=== PATIENT | female | born 2000 | race Caucasian/White ===

== ENCOUNTER 2024-12-28 08:41 | Emergency (ER) | payer OTHER, SELFPAY ==
--- OUTSIDE RECORDS SUMMARY | 2011-04-29 20:00 | XMS_ITS | Continuity of Care Document ---
Demographics Address Unknown Address [birth year][address][birth year] [place] [address] Home Phone Preferred Language en Marital Status Unknown Mandaeism Affiliation Unknown Race Unknown Ethnic Group Unknown Author Organization [facility] Address [address] [place] [address] Phone Care Team Providers Care Managed Care Coordinator Name Role Phone Nima Aparicio Unavailable Unavailable Procedures Procedure Date OFFICE/OUTPATIENT VISIT, EST TDAP VACCINE >7 IM CHICKEN POX VACCINE, SC OFFICE/OUTPATIENT VISIT, EST Advance Directives Directive Yes / No Effective Date File Name Resuscitation Not Answered N/A N/A Life Support Not Answered N/A N/A Intubation Not Answered N/A N/A Antibiotics Not Answered N/A N/A IV Fluid Support Not Answered N/A N/A Tube Feed Not Answered N/A N/A Other Directive N/A N/A WARNING:The information contained in this section is historical and is provided for information only and does not constitute a legal document or any assurance that the information is still accurate. Please verify the information with the julio of the legal document before using it for clinical purposes. Encounters Encounter Description Practice Location Reason(s) For Visit Diagnoses Date Provider Providers Copied on Encounter OFFICE/OUTPAT IENT VISIT, EST [facility], [address] [place], [place], [id number], [place] tel:[phone] [facility] Need for prophylactic vaccination and inoculation against varicellaNeed for prophylactic vaccination with combined diphtheria-teta nus-pertussis (DTP) (DTaP) vaccine Evelia Herring. [address] [place], [place], [id number], [place]. tel:[phone] Family History Family Member Type Diagnosis Age At Onset No Information Immunizations Vaccine Date Status Comments Tdap administered Source: New Imm unization Record Varicella administered Source: New Imm unization Record Payers Payer name Insurance type Covered republican ID Authoriza tion(s) No Information Social History Type Description Quantity Date Captured Comments Alcohol Use Details Unknown Caffeine Use Details Unknown Tobacco Use Status No Information Smoking Status No Information Sex Female Chief Complaint And Reason For Visit No Information Reason For Referral Reason For Referral No Information History Of Present Illness Encounter Date Complaint History Of Prese nt Illness No Information Functional Status Date Functional Assessmen t No Information Instructions Date Instruction Additional Infor mation No Information Assessments Type Assessment Date No Information Patient Care Teams Name Effective Dates (start - stop) Status Members No Information
[2024-12-28 08:46] VITALS: BP 125/63; PULSE 84; TEMP 37.3; O2SAT 98; BMI 23.3
--- OUTSIDE RECORDS SUMMARY | 2024-12-28 08:48 | XMS_ITS | Continuity of Care Document ---
Author Name [facility] Organization [facility] Care Team Providers Care Shear Setter Name Role Phone [facility] Unavailable Unavailable Medications Combined list of outpatient medications from Department of Defense and Veterans Affairs facilities.Medications provided include 1) outpatient medications from the last 15 months, and 2) patient-reported medications. Medication Details Route Status Patient Instructions Prescription Expires Prescription Number Last Dispense Date Ordering Provider Order Date Order Qty Source CRYSELLE (NORGESTREL -ETHINYL ESTRADIOL), 0.3-0.03MG, TABLET, ORAL, DE LE[place]N, 28 ea. BLIST PACK Active [id number] 2023 84 Pharmac y Data Transac tion Service Facilit y CRYSELLE (NORGESTREL -ETHINYL ESTRADIOL), 0.3-0.03MG, TABLET, ORAL, DE LEÓN, 28 ea. BLIST PACK Cancele d [id number] : 2023 0 Pharmac y Data Transac tion Service Facilit y CRYSELLE (NORGESTREL -ETHINYL ESTRADIOL), 0.3-0.03MG, TABLET, ORAL, DE LEÓN, 28 ea. BLIST PACK Active [id number] 2023 28 Pharmac y Data Transac tion Service Facilit y Immunizations Combined list of available immunizations from the Department of Defense and Veterans Affairs facilities. Immunization Series Date Given Administered By Site Reaction Lot Number CVX Code Drug Ship'S Pilot Status Comments Source Influenza, inj, MDCK, quadrivalent- pf 2022 171 Seqirus complet ed Influenza , inj, MDCK, quadrival ent-pf 07/10/23 Given Ambulat ory Pharmac y typhoid Vi capsular polysaccharid e vac 2022 [id number] sanofi pasteur complet ed typhoid Vi capsular polysacch aride vac 03/28/23 Given Ambulat ory Pharmac y anthrax vaccine 2022 [id number] Emergent Biosolutions complet ed anthrax vaccine 03/28/23 Given Ambulat ory Pharmac y influenza, injectable, quadrivalent- pf 2021 [id number] 150 sanofi pasteur complet ed influenza , injectabl e, quadrival ent-pf 06/21/22 Given Ambulat ory Pharmac y HepB, Adult 2021 [id number] GlaxoSmithKli ne complet ed HepB, Adult 10/27/21 Given Ambulat ory Pharmac y COVID Vaccine Pfizer 2021 [id number] PFIZER complet ed COVID Vaccine Pfizer 08/30/21 Given Ambulat ory Pharmac y influenza, injectable, quadrivalent- pf 2021 [id number] 150 Seqirus complet ed influenza , injectabl e, quadrival ent-pf 08/05/21 Given Ambulat ory Pharmac y COVID Vaccine Pfizer 2021 [id number] PFIZER complet ed COVID Vaccine Pfizer 08/05/21 Given Ambulat ory Pharmac y hepatitis A adult vaccine 2020 [id number] 52 GlaxoSmithKli ne complet ed hepatitis A adult vaccine 09/22/20 Given Ambulat ory Pharmac y influenza, injectable, quadrivalent- pf 2020 150 complet ed influenza , injectabl e, quadrival ent-pf 08/10/20 Given Ambulat ory Pharmac y influenza, injectable, quadrivalent, preservative free 2020 MEENA IRAHETA () Not Given influenza , injectabl e, quadrival ent, preservat lucretia free [facility] influenza, injectable, quadrivalent- pf 2018 [id number] 150 Seqirus complet ed influenza , injectabl e, quadrival ent-pf 07/09/19 Given Ambulat ory Pharmac y measles/mumps /rubella virus vaccine 2018 [id number] Merck & Company Inc complet ed measles/m umps/rube lla virus vaccine 09/21/18 Given Ambulat ory Pharmac y hepatitis B pediatric/ado lescent 2018 [id number] GlaxoSmithKli ne complet ed hepatitis B pediatric /adolesce nt 09/21/18 Given Ambulat ory Pharmac y meningococcal A,C,Y,W-135 (MCV4P) 2017 [id number] 114 sanofi pasteur complet ed meningoco ccal A,C,Y,W-1 35 (MCV4P) 06/25/18 Given Ambulat ory Pharmac y hepatitis B pediatric/ado lescent 2017 [id number] 08 GlaxoSmithKli ne complet ed hepatitis B pediatric /adolesce nt 06/25/18 Given Ambulat ory Pharmac y influenza, injectable, quadrivalent 2017 [id number] 158 Seqirus complet ed influenza , injectabl e, quadrival ent 06/25/18 Given Ambulat ory Pharmac y adenovirus vaccine, live 2017 [id number] 143 Teva Pharmaceutica ls complet ed adenoviru s vaccine, live 06/25/18 Given Ambulat ory Pharmac y tetanus, diphtheria, acellular pertu is 2017 [id number] GlaxoSmithKli ne complet ed tetanus, diphtheri a, acellular pertussis 06/25/18 Given Ambulat ory Pharmac y poliovirus vaccine, inactivated 2017 [id number] sanofi pasteur complet ed polioviru s vaccine, inactivat ed 06/25/18 Given Ambulat ory Pharmac y measles/mumps /rubella virus vaccine 2017 [id number] Merck & Company Inc complet ed measles/m umps/rube lla virus vaccine 06/25/18 Given Ambulat ory Pharmac y measles, mumps and rubella virus vaccine 1 2017 [id number] Merck (MSD) complet ed measles, mumps and rubella virus vaccine DoD hepatitis B vaccine, pediatric or pediatric/ado lescent dosage 1 2017 [id number] 08 [employer] (SKB) complet ed hepatitis B vaccine, pediatric or pediatric /adolesce nt dosage DoD poliovirus vaccine, inactivated 1 2017 [id number] 10 Sanofi Pasteur (PMC) complet ed polioviru s vaccine, inactivat ed DoD varicella virus vaccine 1 2017 UNK 21 Unknown (UNK) Not Given varicella virus vaccine DoD hepatitis A vaccine, adult dosage 1 2017 UNK 52 Unknown (UNK) Not Given hepatitis A vaccine, adult dosage DoD meningococcal polysaccharid e (groups A, C, Y and W-135) diphtheria toxoid conjugate vaccine (MCV4P) 1 2017 [id number] 114 Sanofi Pasteur (PMC) complet ed meningoco ccal polysacch aride (groups A, C, Y and W-135) diphtheri a toxoid conjugate vaccine (MCV4P) DoD tetanus toxoid, reduced diphtheria toxoid, and acellular pertu is vaccine, adsorbed 1 2017 [id number] 115 SmithKline (SKB) complet ed tetanus toxoid, reduced diphtheri a toxoid, and acellular pertussis vaccine, adsorbed DoD Adenovirus, type 4 and type 7, live, oral 1 2017 [id number] 143 Independa (BRR) complet ed Adenoviru s, type 4 and type 7, live, oral [facility] influenza, injectable, quadrivalent, contains preservative 1 2017 [id number] 158 Seqirus (SEQ) complet ed influenza , injectabl e, quadrival ent, contains preservat lucretia DoD Encounters Combined list of: 1) Encounters from Department of Veterans Affairs facilities going backup to the last 18 months, not all VA inpatient encounters are included; 2) Encounters from the Department of Defense facilities going backup to 280 months. Location Location Details Encounter Type Encounter Number Reason For Visit Attending Provider ADM Date DC Date Status Disposition Source [place] OUTPATIENT [id number] Notes Entered by: CHRISTOPHER GODFREY 23 Jun 2018 0640 ------- ------- ------- ------- -- [id number] DAY 1 600 JOAQUIN FLORES 06/23 Released w/o Limitations [place] [id number] Notes Entered by: TANNER LEWIS 23 Jun 2018 0645 ------- ------- ------- ------- -- Optomet ry CAIO Aviles 06/23 Released w/o Limitations [place] OUTPATIENT [id number] Notes Entered by: AIDEN PALOMINO 25 Jun 2018 0456 ------- ------- ------- ------- -- [id number] DAY 3 600 LYNETTE JEFF 06/25 Released w/o Limitations [place] OUTPATIENT [id number] IMTIAZ BROWN 06/25 Released w/o Limitations [place] OUTPATIENT [id number] Notes Entered by: AIDEN PALOMINO 21 Sep 2018 0410 ------- ------- ------- ------- -- B CO 1-58 PED B/MMR JD LI 09/21 Released w/o Limitations [place] Procedures Combined list of: 1) Procedures from Department of Veterans Affairs facilities going back up to thelast 18 months, not all VA non-surgical procedures are included; 2) All procedures from the Department of Defense facilities. Procedure Procedure Type Code Date Perfomer Comments Sourc e No data available for this section Ambulato ry Pharmacy MEASLES, MUMPS AND RUBELLA VIRUS VACCINE (MMR), LIVE, FOR SUBCUTANEOUS USE 09/21/19 [facility] AUDIOMETRIC TESTING OF GROUPS 06/25/20 DoD INFLUENZA VIRUS VACCINE, QUADRIVALENT (IIV4), SPLIT VIRUS, 0.5 ML DOSAGE, FOR INTRAMUSCULAR USE 06/25/20 [facility] SCREENING TEST OF VISUAL ACUITY, QUANTITATIVE, BILATERAL 06/23/20 [facility] COLLECTION OF VENOUS BLOOD BY VENIPUNCTURE 06/23/20 18 DoD Vaccines Viral Measles, Mumps and Rubella, Live Vaccines Viral Measles, Mumps and Rubella, Live 97075 09/21/19 JD LI DoD Immunization Administration Each Additional Vaccine Immunization Administration Each Additional Vaccine 54470 09/21/19 JD LI DoD Immunization Administration One Vaccine Immunization Administration One Vaccine 31295 09/21/19 19 JEN, JD Matt [facility] Hep B Vaccine (Active); Adolescent (2 Dose Schedule) Hep B Vaccine (Active); Adolescent (2 Dose Schedule) 02641 09/21/19 19 JENJD GASTON [facility] Audiometry Group Testing Audiometry Group Testing 69072 06/29/20 18 IMTIAZ BROWN [facility] Vaccines Adenovirus Type 7 Live, For Oral Use Vaccines Adenovirus Type 7 Live, For Oral Use 08040 06/25/20 18 [facility] Vaccines Adenovirus Type 4 Live, For Oral Use Vaccines Adenovirus Type 4 Live, For Oral Use 32751 06/25/20 18 [facility] Vaccines Viral Polio, Inactivated (Salk) Vaccines Viral Polio, Inactivated (Salk) 49668 06/25/20 18 [facility] Vaccines Viral Measles, Mumps and Rubella, Live Vaccines Viral Measles, Mumps and Rubella, Live 42224 06/25/20 18 [facility] Tdap Vaccine Tdap Vaccine 22897 06/25/20 18 [facility] Hep B Vaccine (Active); Adolescent (2 Dose Schedule) Hep B Vaccine (Active); Adolescent (2 Dose Schedule) 71155 06/25/20 18 [facility] Immunization Administration One Vaccine Immunization Administration One Vaccine 95704 06/25/20 18 [facility] Immunization Administration Each Additional Vaccine Immunization Administration Each Additional Vaccine 01831 06/25/20 18 [facility] Meningococcal Polysacch Diphtheria Toxoid Conjugate Vaccine 06/25/20 18 [facility] Screening Test Of Visual Acuity, Quantitative, Bilateral Screening Test Of Visual Acuity, Quantitative, Bilateral 20825 06/23/[address] [facility] Venipuncture Venipuncture 44117 06/23/20 18 JOAQUIN FLORES [facility] Social History Combined list of available smoking, tobacco, and other social history from Department of Defense and Veterans Affairs facilities. Social History Type Response Date Comment [facility] e This section is an empty social history section. [facility] Assessment and Plan Combined list of future care activities from Department of Defense and Veterans Affairs facilities (e.g., assessment and plan notes, appointments, orders, and referrals). Additional future care activities may be listed in the Plan of Care section. Result Assessment and Plan Date Source Assessment and Plan No data available for this section 12/28/2024 Ambulatory Pharmacy Functional Status Combined list of recent functional and cognitive assessments recorded at Department of Defense and Veterans Affairs (VA).VA Functional Vinton Measurement (FIM) Scale: 1 = Total Assistance (Subject = 0% +), 2 = Maximal Assistance (Subject = 25% +), 3 = Moderate Assistance (Subject = 50% +), 4 = Minimal Assistance (Subject = 75% +), 5 = Supervision, 6 = Modified Vinton (Device), 7 = Complete Vinton (Timely, Safely). Assessment Date/Time Source Assessment Type Assessment Skill Assessment Score Assessment Details No data available for this section
--- NOTE | 2024-12-28 09:05 | ED.GENADUL1 ---
HPI HPI - General Adult General Chief complaint: Urogenital-Female Stated complaint: CHILLS FEVER VOMITING L FLANK PAIN Time Seen by Provider: 12/28/24 08:57 Source: patient Mode of arrival: walk-in Limitations: no limitations History of Present Illness HPI narrative: 24-year-old female presents for chills and left flank pain. She has had some urinary frequency and her symptoms began yesterday. She states she had a temperature of 102 degrees last night. She has had a kidney infection in the past. Related Data Home Medications ?Medication ?Instructions ?Recorded ?Confirmed norgestrel 0.3 mg-ethinyl 1 tab PO DAILY 12/28/24 12/28/24 estradiol 30 mcg tablet (Fidel (28)) Previous Rx's ?Medication ?Instructions ?Recorded cephalexin 500 mg capsule 500 mg PO TID 10 days #30 caps 12/28/24 Allergies Allergy/AdvReac Type Severity Reaction Status Date / Time No Known Drug Allergies Allergy Verified 12/28/24 08:45 Review of Systems ROS Narrative A ten point review of systems is negative except as noted above. PFSH PFSH Social History Little interest or pleasure in doing things: not at all Feeling down, depressed, or hopeless: not at all Exam Narrative Exam Narrative: Nurses note and vital signs reviewed and patient is not hypoxic. General: The patient appears well and in no apparent distress. Patient is resting comfortably on cart. Skin: Warm, dry, no pallor noted. There is no rash noted. Head: Normocephalic, atraumatic Eye: Normal conjunctiva, no drainage Ears, Nose, Mouth, and Throat: oral mucosa is moist. Nares patent. Cardiovascular: Regular Rate and Rhythm Respiratory: Patient is in no distress, no accessory muscle use, lungs are clear to auscultation, no wheezing, rales or rhonchi Back: non-tender, no CVA tenderness bilaterally to percussion. GI: Soft and nontender Musculoskeletal: The patient has no evidence of calf tenderness, no pitting edema, symmetrical pulses noted bilaterally Neurological: A&O, normal speech Psychiatric: Cooperative Constitutional Vital Signs, click to edit/add: Last Vital Signs Temp 99.1 F 12/28/24 08:46 Pulse 84 12/28/24 08:46 Resp 20 12/28/24 08:46 BP 125/63 12/28/24 08:46 Pulse Ox 98 12/28/24 08:46 O2 Del Method Room Air 12/28/24 08:46 Course Vital Signs Vital signs: Vital Signs Temperature 99.1 F 12/28/24 08:46 Pulse Rate 84 12/28/24 08:46 Respiratory Rate 20 12/28/24 08:46 Blood Pressure 125/63 12/28/24 08:46 Pulse Oximetry 98 12/28/24 08:46 Oxygen Delivery Method Room Air 12/28/24 08:46 Temperature 99.1 F 12/28/24 08:46 Pulse Rate 84 12/28/24 08:46 Respiratory Rate 20 12/28/24 08:46 Blood Pressure 125/63 12/28/24 08:46 Pulse Oximetry 98 12/28/24 08:46 Oxygen Delivery Method Room Air 12/28/24 08:46 Medical Decision Making MDM Narrative Medical decision making narrative: UTI is identified. She was given IV Rocephin and is able to be discharged home on Keflex. Treatment diagnosis and follow-up were discussed with the patient. At this point I do not suspect pyelonephritis. Differential Diagnosis Differential Diagnosis: UTI, pyelonephritis Lab Data Lab results reviewed: Yes I reviewed the patient's lab results Labs: Lab Results 12/28/24 12/28/24 Range/Units 08:50 09:15 WBC 12.1 H (4.0-11.0) 10^3/uL RBC 4.35 (4.20-5.40) 10^6/uL Hgb 12.6 (12.0-16.0) g/dL Hct 37.4 (36.0-48.0) % MCV 86.0 (81.0-99.0) fL MCH 29.0 (26.7-34.0) pg MCHC 33.7 (29.9-35.2) g/dL RDW 13.3 (11.0-15.0) % Plt Count 182 (150-450) 10^3/uL MPV 10.7 (9.5-13.5) fL Seg Neuts % (Manual) 86.0 H (43.0-75.0) Lymphocytes % (Manual) 9.0 L (20.5-60.0) % Monocytes % (Manual) 5.0 (1.7-12.0) % Eosinophils % (Manual) 0.0 L (0.9-7.0) % Basophils % (Manual) 0.0 L (0.2-2.0) % Neutrophils # (Manual) 10.40 H (1.4-6.5) 10^3/uL Lymphocytes # (Manual) 1.08 L (1.20-3.80) 10^3/uL Monocytes # (Manual) 0.60 (0.30-0.80) 10^3/uL Eosinophils # (Manual) 0.00 (0.00-0.70) 10^3/uL Basophils # (Manual) 0.00 (0.00-0.10) 10^3/uL Anisocytosis 1+ Sodium 137 (136-145) mmol/L Potassium 3.6 (3.5-5.1) mmol/L Chloride 101 (98-107) mmol/L Carbon Dioxide 25.4 (21.0-32.0) mmol/L Anion Gap 14.2 BUN 7.0 (7.0-18.0) mg/dL Creatinine 0.81 (0.55-1.02) mg/dL Est GFR ( Amer) >60 (>=60 mL/min/1.73m^2) Est GFR (Non-Af Amer) >60 (>=60 mL/min/1.73m^2) BUN/Creatinine Ratio 8.6 Glucose 134 H (74-106) mg/dL Calcium 9.4 (8.5-10.1) mg/dL Serum HCG, Qual Negative (NEGATIVE) Urine Color Lt. yellow (YELLOW) Urine Clarity Sl cloudy (CLEAR) Urine pH 8.0 (5.0-9.0) Ur Specific Shepherd 1.015 (1.005-1.025) Urine Protein 30 A (NEG/TRACE) mg/dL Urine Glucose (UA) Negative (NEGATIVE) mg/dL Urine Ketones >=80 A (NEGATIVE) mg/dL Urine Occult Blood Moderate A (NEGATIVE) Urine Nitrite Positive A (NEGATIVE) Urine Bilirubin Negative (NEGATIVE) Urine Urobilinogen 2.0 A (0.2-1.0) EU/dL Ur Leukocyte Esterase Small A (NEGATIVE) Urine RBC 10-20 A (0-2) #/HPF Urine WBC 20-50 A (NONE SEEN) #/HPF Ur Squamous Epith Cells Few A (NONE/RARE) #/LPF Urine Crystals None seen (None Seen) #/HPF Urine Bacteria Large A (NONE SEEN) #/HPF Urine Casts None seen (NONE SEEN) #/LPF Urine Mucus Moderate A (NONE SEEN) Ur Culture Indicated? Yes-[facility] [place] Discharge Plan Discharge Chief Complaint: Urogenital-Female Clinical Impression: Urinary tract infection Patient Disposition: Home, Self-Care Time of Disposition Decision: 09:51 Condition: Good Mode of Transportation: Private Vehicle Prescriptions / Home Meds: New cephalexin 500 mg capsule 500 mg PO TID 10 Days Qty: 30 0RF No Action Cryseradhae (28) 0.3-30 mg-mcg tablet 1 tab PO DAILY Print Language: Trinidadian Instructions: Urinary Tract Infection in Women (ED) Referrals: Paresh Torres DO [Primary Care Provider] - 1 week
[2024-12-28 09:13] LABS: Bilirubin Urine NEGATIVE (NEGATIVE); Blood Urine MODERATE (NEGATIVE); Clarity Urine SL CLOUDY (CLEAR); Color Urine LT. YELLOW (YELLOW); Glucose Urine UA NEGATIVE (NEGATIVE); Ketones Urine >=80 mg/dL (NEGATIVE); Leukocyte Esterase Urine SMALL (NEGATIVE); Nitrite Urine POSITIVE (NEGATIVE); Protein Urine 30 mg/dL (NEG/TRACE); Specific Gravity Urine 1.015 (1.005-1.025)
[2024-12-28 09:20] LABS: Bacteria Urine LARGE #/HPF (NONE SEEN); Crystals Seen? None Seen #/HPF (None Seen); Mucus Urine MODERATE (NONE SEEN); Squamous Epithelial Cell Urine FEW #/LPF (NONE/RARE); WBC Urine 20-50 #/HPF (NONE SEEN)
[2024-12-28 09:21] LABS: Cast Seen? NONE SEEN #/LPF (NONE SEEN); Urine Culture Indicated YES-FRMC
[2024-12-28 09:23] LABS: Hematocrit 37.4 % (36.0-48.0); Hemoglobin 12.6 g/dL (12.0-16.0); Mean Corpuscular HGB Conc 33.7 g/dL (29.9-35.2); Mean Platelet Volume 10.7 fL (9.5-13.5); Platelet Count 182 10^3/uL (150-450); Red Blood Count 4.35 10^6/uL (4.20-5.40); Red Cell Distribution Width 13.3 % (11.0-15.0); White Blood Count 12.1 10^3/uL (4.0-11.0)
[2024-12-28 09:33] LABS: Anion Gap 14.2; BUN Creatinine Ratio 8.6; Calcium 9.4 mg/dL (8.5-10.1); Carbon Dioxide 25.4 mmol/L (21.0-32.0); Chloride 101 mmol/L (98-107); Estimated GFR (African America >60 (>=60 mL/min/1.73m^2); Estimated GFR (Non-African Ame >60 (>=60 mL/min/1.73m^2); Glucose 134 mg/dL (74-106); Potassium 3.6 mmol/L (3.5-5.1); Sodium 137 mmol/L (136-145)
[2024-12-28 09:44] LABS: Lymphocytes Absolute Manual 1.08 10^3/uL (1.20-3.80)
[2024-12-28 09:45] LABS: Anisocytosis 1+
[2024-12-28 09:46] LABS: HCG Qualitative NEGATIVE (NEGATIVE); Internal Control Within Normal Limits
[2024-12-28] MEDS: 0.9 % SODIUM CHLORIDE 1,000 ML 1000 ML IV (09:50)
[2024-12-28] MEDS: CEFTRIAXONE 1,000 MG in 0.9 % SODIUM CHLORIDE 50 ML 100 MG IV (09:50)
== END 2024-12-28 10:26 | disposition home or self-care (01) ==
PROVIDERS: Emergency Provider Emergency Medicine; PCP Family Medicine
DX: N39.0 Urinary tract infection, site not specified (principal)
CPT/HCPCS: 36415; 80048; 81001; 84703; 85007; 85027; 87086; 87088; 87186; 96365; 99284; J0696